=== PATIENT | male | born 1980 | race Caucasian/White ===

== ENCOUNTER 2020-12-25 22:46 | Emergency (ER) | payer OTHER, SELFPAY ==
[2020-12-25 22:48] VITALS: BP 145/100; PULSE 95; RESP 20; TEMP 36.7; O2SAT 100
[2020-12-26 00:48] VITALS: BP 127/71; PULSE 94; RESP 18; TEMP 36.7; O2SAT 100
--- NOTE | 2020-12-26 01:50 | ED.GENADULT ---
HPI - General Adult General Chief complaint: Unspecified Stated complaint: not feeling well. Time Seen by Provider: 12/26/20 00:45 History of Present Illness HPI narrative: Patient 40-year-old gentleman who presents the emergency department with chief complaint of not feeling well. Patient states first about a year he has been feeling not necessarily the best the patient states that he has had episodes of lightheadedness of the patient states that it is intermittent but cannot give a frequency of the intermittent nature. The patient reports that he was seen at [facility] the emergency department and had blood work and other studies done but states that they did not find anything and he came to our emergency department for said opinion patient has not followed up with his primary care physician the patient states this evening he got lightheaded felt as though the room was spinning. Related Data Home Medications Medication Instructions Recorded Confirmed No Home Medications 12/25/20 12/25/20 Allergies Allergy/AdvReac Type Severity Reaction Status Date / Time No Known Allergies Allergy Verified 12/25/20 22:52 Review of Systems Review of Systems: A 10 system review of systems was completed on the patient and is negative except for what is stated in the HPI. Nursing and ancillary documentation was reviewed. Exam Narrative: GENERAL: Well-appearing, well-nourished, and in no acute distress. HEAD: Normocephalic, atraumatic. EYES: PERRLA and EOMI. ENT: Nares clear, no rhinorrhea or epistaxis. Mucous membranes moist. NECK: Supple. CHEST: Clear to auscultation. No respiratory distress. HEART: Regular rate and rhythm. No murmur heard. Normal peripheral pulses. ABDOMEN: Soft, nontender, nondistended, normal active bowel sounds. EXTREMITIES: Normal range of motion. No edema. SKIN: Warm, dry, no rash. NEURO: No focal deficits. Alert and oriented x3. PSYCH: Normal mood and affect. Course Vital Signs Vital signs: Vital Signs Temperature 36.7 C 12/25/20 22:48 Pulse Rate 95 12/25/20 22:48 Respiratory Rate 20 12/25/20 22:48 Blood Pressure 145/100 H 12/25/20 22:48 Pulse Oximetry 100 12/25/20 22:48 Temperature 36.7 C 12/26/20 00:48 Pulse Rate 94 12/26/20 00:48 Respiratory Rate 18 12/26/20 00:48 Blood Pressure 127/71 12/26/20 00:48 Pulse Oximetry 100 12/26/20 00:48 Medical Decision Making Vital Signs Vital Signs: Vital Signs Temperature 36.7 C 12/25/20 22:48 Pulse Rate 95 12/25/20 22:48 Respiratory Rate 12/25/20 22:48 Blood Pressure 145/100 H 12/25/20 22:48 Pulse Oximetry 100 12/25/20 22:48 Temperature 36.7 C 12/26/20 00:48 Pulse Rate 94 12/26/20 00:48 Respiratory Rate 18 12/26/20 00:48 Blood Pressure 127/71 12/26/20 00:48 Pulse Oximetry 100 12/26/20 00:48 Discharge Plan Discharge Clinical Impression: Dizziness Patient Disposition: Left Against Medical Advice Condition: Stable Prescriptions: No Action No Home Medications RF: 0 Follow-up/Referrals: PHYSICIAN NOT ON STAFF,NONSTAFF [Primary Care Provider] - Time of Disposition: 01:52
== END 2020-12-26 02:24 | disposition left against medical advice (07) ==
PROVIDERS: Emergency Provider Emergency Medicine
DX: R42 Dizziness and giddiness (principal)
CPT/HCPCS: 99281